=== PATIENT | female | born 1995 | race Asian ===

== ENCOUNTER 2019-06-06 00:42 | Emergency (ER) | payer OTHER ==
[~2019-06-06] VITALS: Ht 162.6 cm; Wt 42.0 kg
[2019-06-06] MEDS ORDERED: DOCUSATE SODIUM 100MG CAPSULE PO ONE (01:30)
[2019-06-06] MEDS ORDERED: HALOPERIDOL LACTATE 5MG/ML VIAL IM ONE (01:30)
[2019-06-06 01:32] LABS: CHLORIDE 108 mEq/L (98-107)
[2019-06-06 01:35] LABS: BASOPHILS % 0.5 % (0.0-2.0); EOSINOPHILS % 0.9 % (0.0-5.0); HEMATOCRIT. 34.5 % (36.0-48.0); HEMOGLOBIN. 11.3 g/dL (12.0-16.0); LYMPHOCYTES % 34.9 % (20.0-50.0); MEAN CORPUSCULAR HEMOGLOBIN 26.7 pg (28.0-32.0); MEAN CORPUSCULAR VOLUME 81.5 fL (81.0-99.0); MEAN PLATELET VOLUME 8.1 fl (7.4-10.4); MONOCYTES % 5.2 % (2.0-8.0); NEUTROPHILS % 58.5 % (40.0-76.0); PLATELET 210 x1000/uL (130-400); RED BLOOD CELL COUNT 4.24 mill/uL (4.2-5.4); RED CELL DISTRIBUTION WIDTH 15.2 % (11.6-14.6)
[2019-06-06 02:21] VITALS: BP 109/81
== END 2019-06-06 02:24 | disposition home or self-care (01) ==
LOC: ER 00:42
DX: R10.13 Epigastric pain (principal); K59.00 Constipation, unspecified; F12.10 Cannabis abuse, uncomplicated; Z98.890 Other specified postprocedural states
CPT/HCPCS: 36415; 80053; 81025; 83690; 85025; 96372; 99283; J1630